=== PATIENT | female | born 1985 | race Caucasian/White ===

== ENCOUNTER 2016-12-11 15:47 | Emergency (ER) | payer MEDICAID ==
[2016-12-11 18:09] VITALS: BP 120/71
== END 2016-12-11 18:09 | disposition home or self-care (01) ==
LOC: ED 15:47
DX: K52.9 Noninfective gastroenteritis and colitis, unspecified (principal)
CPT/HCPCS: Q0162

== ENCOUNTER 2018-01-22 21:06 | Emergency (ER) | payer SELFPAY ==
[~2018-01-22] VITALS: Ht 157.5 cm; Wt 120.2 kg
[2018-01-22 21:19] VITALS: Ht 157.5 cm; Wt 120.2 kg
[2018-01-22 22:16] LABS: BASOPHIL % 0.5 % (0-2); PLATELET COUNT 287 x10^3mcL (130-400); RED CELL DISTRIBUTION WIDTH 13.6 % (11.5-14.5)
[2018-01-22 22:24] LABS: CALCIUM 8.6 mg/dL (8.5-10.1); CARBON DIOXIDE 23.6 mmol/L (21-32); CHLORIDE SERUM 107 mmol/L (98-107); CREATININE SERUM 0.8 mg/dL (0.6-1.0); GFR1 > 60 mL/min; GLUCOSE SERUM 109 mg/dL (74-106); POTASSIUM SERUM 3.9 mmol/L (3.5-5.1); SODIUM SERUM 142 mmol/L (136-145)
[2018-01-22 22:36] LABS: ALBUMIN 3.6 g/dL (3.4-5.0); ALKALINE PHOSPHATASE 101 U/L (46-116); ALT/SGPT 36 U/L (14-59); AST/SGOT 21 U/L (15-37); BILIRUBIN TOTAL 0.38 mg/dL (0.20-1.00); LIPASE 215 IU/L (73-393); TOTAL PROTEIN, SERUM 7.6 g/dL (6.4-8.2)
[2018-01-22 23:24] VITALS: BP 130/80
== END 2018-01-22 23:24 | disposition home or self-care (01) ==
LOC: ED 21:06
PROVIDERS: Emergency Medicine
DX: K21.9 Gastro-esophageal reflux disease without esophagitis (principal); E78.00 Pure hypercholesterolemia, unspecified
CPT/HCPCS: Q0092

== ENCOUNTER 2018-06-06 20:45 | Emergency (ER) | payer MEDICAID ==
[2018-06-06 23:07] VITALS: BP 140/87
== END 2018-06-06 23:07 | disposition home or self-care (01) ==
LOC: ED 20:45
DX: J02.9 Acute pharyngitis, unspecified (principal); R05 Cough; R51 Headache; R07.0 Pain in throat
CPT/HCPCS: J1885

== ENCOUNTER 2018-06-07 17:06 | Emergency (ER) | payer MEDICAID ==
[~2018-06-07] VITALS: Ht 167.6 cm; Wt 117.0 kg
[2018-06-07 17:14] VITALS: Ht 167.6 cm; Wt 117.0 kg
[2018-06-07 18:24] LABS: PLATELET COUNT 285 x10^3mcL (130-400); RED CELL DISTRIBUTION WIDTH 14.5 % (11.5-14.5)
[2018-06-07 18:32] LABS: CALCIUM 8.5 mg/dL (8.5-10.1); CARBON DIOXIDE 22.5 mmol/L (21-32); CHLORIDE SERUM 106 mmol/L (98-107); CREATININE SERUM 0.9 mg/dL (0.6-1.0); GFR1 > 60 mL/min; GLUCOSE SERUM 159 mg/dL (74-106); POTASSIUM SERUM 4.4 mmol/L (3.5-5.1); SODIUM SERUM 138 mmol/L (136-145)
[2018-06-07 18:35] LABS: ALBUMIN 3.5 g/dL (3.4-5.0); ALKALINE PHOSPHATASE 115 U/L (46-116); ALT/SGPT 82 U/L (14-59); AST/SGOT 47 U/L (15-37); BILIRUBIN TOTAL 0.5 mg/dL (0.20-1.00); LIPASE 178 IU/L (73-393); TOTAL PROTEIN, SERUM 8.1 g/dL (6.4-8.2)
[2018-06-07 18:46] LABS: BAND NEUTROPHIL 0 % (0-10); BASOPHIL 0 % (0-2); MONOCYTE 1 % (0-7); SEGMENTED NEUTROPHILS 94 % (37-75); rbc morphology (normal/abnorm) NORMAL (NORMAL)
[2018-06-07 18:59] VITALS: BP 143/86
== END 2018-06-07 20:10 | disposition home or self-care (01) ==
LOC: ED 17:06
PROVIDERS: Emergency Medicine
DX: K29.70 Gastritis, unspecified, without bleeding (principal); E78.00 Pure hypercholesterolemia, unspecified
CPT/HCPCS: J2270; J2405; J7030; Q0092

== ENCOUNTER 2018-08-23 12:59 | Emergency (ER) | payer MEDICAID ==
[~2018-08-23] VITALS: Ht 160 cm; Wt 119.7 kg
[2018-08-23 13:30] VITALS: Ht 160 cm; Wt 119.7 kg
[2018-08-23 15:54] VITALS: BP 131/78
== END 2018-08-23 15:54 | disposition home or self-care (01) ==
LOC: ED 12:59
DX: J02.9 Acute pharyngitis, unspecified (principal); E78.00 Pure hypercholesterolemia, unspecified

== ENCOUNTER 2018-10-17 09:19 | Emergency (ER) | payer MEDICAID ==
[~2018-10-17] VITALS: Ht 160 cm; Wt 121.1 kg
[2018-10-17 09:33] VITALS: BP 142/76
== END 2018-10-17 11:23 | disposition home or self-care (01) ==
LOC: ED 09:19
DX: H10.33 Unspecified acute conjunctivitis, bilateral (principal); J06.9 Acute upper respiratory infection, unspecified; E78.00 Pure hypercholesterolemia, unspecified
CPT/HCPCS: J1100

== ENCOUNTER 2019-01-28 20:31 | Emergency (ER) | payer MEDICAID ==
[~2019-01-28] VITALS: Ht 154.9 cm; Wt 121.1 kg
[2019-01-28 21:09] VITALS: Ht 154.9 cm; Wt 121.1 kg
[2019-01-28 23:28] LABS: BASOPHIL % 0.8 % (0-2); PLATELET COUNT 292 x10^3mcL (130-400); RED CELL DISTRIBUTION WIDTH 13.2 % (11.5-14.5)
[2019-01-28 23:45] LABS: CALCIUM 9.7 mg/dL (8.5-10.1); CARBON DIOXIDE 26.4 mmol/L (21-32); CHLORIDE SERUM 102 mmol/L (98-107); CREATININE SERUM 0.8 mg/dL (0.6-1.0); GFR1 > 60 mL/min; GLUCOSE SERUM 100 mg/dL (74-106); SODIUM SERUM 138 mmol/L (136-145)
[2019-01-28 23:51] LABS: ALBUMIN 3.7 g/dL (3.4-5.0); ALKALINE PHOSPHATASE 101 U/L (46-116); ALT/SGPT 33 U/L (14-59); AST/SGOT 11 U/L (15-37); BILIRUBIN TOTAL 0.39 mg/dL (0.20-1.00); TOTAL PROTEIN, SERUM 8.1 g/dL (6.4-8.2)
[2019-01-29 00:44] VITALS: BP 140/82
== END 2019-01-29 00:44 | disposition home or self-care (01) ==
LOC: ED 20:31
PROVIDERS: Emergency Medicine
DX: R51 Headache (principal); T43.615A Adverse effect of caffeine, initial encounter; Y92.89 Other specified places as the place of occurrence of the external cause
CPT/HCPCS: J2060; J2405; J3490; J7030

== ENCOUNTER 2019-02-06 00:47 | Emergency (ER) | payer MEDICAID ==
[~2019-02-06] VITALS: Ht 162.6 cm; Wt 104.3 kg
[2019-02-06 00:55] VITALS: Ht 162.6 cm; Wt 104.3 kg
[2019-02-06 03:15] VITALS: BP 120/79
== END 2019-02-06 02:30 | disposition home or self-care (01) ==
LOC: ED 00:47
DX: M79.651 Pain in right thigh (principal)
CPT/HCPCS: Q0092

== ENCOUNTER 2019-05-30 20:27 | Emergency (ER) | payer MEDICAID ==
[~2019-05-30] VITALS: Ht 160 cm; Wt 120.4 kg
[2019-05-30 21:45] VITALS: BP 111/76
== END 2019-05-30 21:45 | disposition home or self-care (01) ==
LOC: ED 20:27
DX: J02.9 Acute pharyngitis, unspecified (principal)
CPT/HCPCS: J1100

== ENCOUNTER 2019-06-27 18:39 | Emergency (ER) | payer MEDICAID ==
[2019-06-27 20:12] VITALS: BP 120/72
== END 2019-06-27 20:12 | disposition home or self-care (01) ==
LOC: ED 18:39
DX: L02.214 Cutaneous abscess of groin (principal)
CPT/HCPCS: 90715; J2001

== ENCOUNTER 2019-07-02 14:42 | Emergency (ER) | payer MEDICAID ==
[~2019-07-02] VITALS: Ht 160 cm; Wt 119.7 kg
[2019-07-02 14:57] VITALS: Ht 160 cm; Wt 119.7 kg
[2019-07-02 16:31] VITALS: BP 121/82
== END 2019-07-02 16:32 | disposition home or self-care (01) ==
LOC: ED 14:42
DX: R11.2 Nausea with vomiting, unspecified (principal); R19.7 Diarrhea, unspecified; R10.13 Epigastric pain; R51 Headache
CPT/HCPCS: J3490; J7030

== ENCOUNTER 2019-09-05 19:05 | Emergency (ER) | payer MEDICAID ==
[~2019-09-05] VITALS: Ht 160 cm; Wt 117.9 kg
[2019-09-05 19:11] VITALS: Ht 160 cm; Wt 117.9 kg
[2019-09-05 19:31] LABS: UA SPECIFIC GRAVITY 1.025 (1.005-1.035); microscopic required? YES; urine erythrocyte 3+ (NEGATIVE)
[2019-09-05 19:33] LABS: BASOPHIL % 0.3 % (0-2); PLATELET COUNT 320 x10^3mcL (130-400); RED CELL DISTRIBUTION WIDTH 13.5 % (11.5-14.5)
[2019-09-05 19:54] LABS: CALCIUM 8.9 mg/dL (8.5-10.1); CARBON DIOXIDE 30.6 mmol/L (21-32); CHLORIDE SERUM 104 mmol/L (98-107); CREATININE SERUM 0.7 mg/dL (0.6-1.0); GFR1 > 60 mL/min; GLUCOSE SERUM 97 mg/dL (74-106); POTASSIUM SERUM 3.8 mmol/L (3.5-5.1); SODIUM SERUM 140 mmol/L (136-145)
[2019-09-05 19:58] LABS: ALBUMIN 3.6 g/dL (3.4-5.0); ALKALINE PHOSPHATASE 107 U/L (46-116); ALT/SGPT 69 U/L (14-59); AST/SGOT 41 U/L (15-37); BILIRUBIN TOTAL 0.4 mg/dL (0.20-1.00); LIPASE 224 IU/L (73-393); TOTAL PROTEIN, SERUM 7.8 g/dL (6.4-8.2)
[2019-09-05 21:02] VITALS: BP 127/71
== END 2019-09-05 21:02 | disposition home or self-care (01) ==
LOC: ED 19:05
PROVIDERS: Emergency Medicine
DX: J98.01 Acute bronchospasm (principal); E66.01 Morbid (severe) obesity due to excess calories; M54.9 Dorsalgia, unspecified; Z68.36 Body mass index [BMI] 36.0-36.9, adult
CPT/HCPCS: 36415; 87804; J2930; J7613; J7644

== ENCOUNTER 2019-09-13 09:24 | Emergency (ER) | payer MEDICAID ==
[~2019-09-13] VITALS: Ht 167.6 cm; Wt 121.1 kg
[2019-09-13 09:33] VITALS: BP 173/89; Ht 167.6 cm; Wt 121.1 kg
== END 2019-09-13 10:07 | disposition home or self-care (01) ==
LOC: ED 09:24
DX: K64.4 Residual hemorrhoidal skin tags (principal)

== ENCOUNTER 2019-09-14 18:26 | Emergency (ER) | payer MEDICAID ==
[~2019-09-14] VITALS: Ht 162.6 cm; Wt 121.6 kg
[2019-09-14 19:13] VITALS: Ht 162.6 cm; Wt 121.6 kg
[2019-09-14 20:00] VITALS: BP 142/88
== END 2019-09-14 20:01 | disposition home or self-care (01) ==
LOC: ED 18:26
DX: J06.9 Acute upper respiratory infection, unspecified (principal); J02.9 Acute pharyngitis, unspecified
CPT/HCPCS: J2920

== ENCOUNTER 2020-01-21 21:32 | Emergency (ER) | payer MEDICAID ==
[~2020-01-21] VITALS: Ht 157.5 cm; Wt 120.2 kg
[2020-01-21 21:48] VITALS: Ht 157.5 cm; Wt 120.2 kg
[2020-01-21 23:56] LABS: BASOPHIL % 0.6 % (0-2); PLATELET COUNT 290 x10^3mcL (130-400); RED CELL DISTRIBUTION WIDTH 13.9 % (11.5-14.5)
[2020-01-22 00:11] LABS: CALCIUM 8.5 mg/dL (8.5-10.1); CARBON DIOXIDE 28.8 mmol/L (21-32); CHLORIDE SERUM 103 mmol/L (98-107); CREATININE SERUM 0.7 mg/dL (0.6-1.0); GFR1 > 60 mL/min; GLUCOSE SERUM 99 mg/dL (74-106); POTASSIUM SERUM 3.7 mmol/L (3.5-5.1); SODIUM SERUM 139 mmol/L (136-145)
[2020-01-22 00:24] LABS: ALBUMIN 3.5 g/dL (3.4-5.0); ALKALINE PHOSPHATASE 102 U/L (46-116); ALT/SGPT 28 U/L (14-59); AMYLASE 65 U/L (25-115); AST/SGOT 17 U/L (15-37); BILIRUBIN TOTAL 0.3 mg/dL (0.20-1.00); LIPASE 237 IU/L (73-393); TOTAL PROTEIN, SERUM 7.4 g/dL (6.4-8.2)
[2020-01-22 00:43] VITALS: BP 127/85
== END 2020-01-22 00:43 | disposition home or self-care (01) ==
LOC: ED 21:32
PROVIDERS: Emergency Medicine
DX: R10.13 Epigastric pain (principal)
CPT/HCPCS: J1885

== ENCOUNTER 2020-04-01 23:06 | Emergency (ER) | payer MEDICAID ==
[~2020-04-01] VITALS: Ht 162.6 cm; Wt 121.1 kg
[2020-04-01 23:30] VITALS: BP 120/83
== END 2020-04-01 23:30 | disposition home or self-care (01) ==
LOC: ED 23:06
DX: K60.2 Anal fissure, unspecified (principal); F41.8 Other specified anxiety disorders

== ENCOUNTER 2020-04-30 18:35 | Emergency (ER) | payer MEDICAID ==
[~2020-04-30] VITALS: Ht 160 cm; Wt 119.7 kg
[2020-04-30 18:56] VITALS: Ht 160 cm; Wt 119.7 kg
[2020-04-30 19:55] LABS: BASOPHIL % 0.8 % (0-2); PLATELET COUNT 298 x10^3mcL (130-400); RED CELL DISTRIBUTION WIDTH 13.5 % (11.5-14.5)
[2020-04-30 20:33] LABS: CALCIUM 8.8 mg/dL (8.5-10.1); CARBON DIOXIDE 25.6 mmol/L (21-32); CHLORIDE SERUM 104 mmol/L (98-107); CREATININE SERUM 0.7 mg/dL (0.6-1.0); GFR1 > 60 mL/min; GLUCOSE SERUM 96 mg/dL (74-106); SODIUM SERUM 138 mmol/L (136-145)
[2020-04-30 20:39] LABS: ALBUMIN 3.5 g/dL (3.4-5.0); ALKALINE PHOSPHATASE 105 U/L (46-116); ALT/SGPT 28 U/L (14-59); AMYLASE 58 U/L (25-115); AST/SGOT 15 U/L (15-37); LIPASE 163 IU/L (73-393); TOTAL PROTEIN, SERUM 7.4 g/dL (6.4-8.2)
[2020-04-30 20:45] LABS: microscopic required? YES; urine erythrocyte 2+ (NEGATIVE)
[2020-04-30 21:42] VITALS: BP 135/74
== END 2020-04-30 21:42 | disposition home or self-care (01) ==
LOC: ED 18:35
PROVIDERS: Student in an Organized Health Care Education/Training Program
DX: R10.13 Epigastric pain (principal)